=== PATIENT | female | born 2000 | race Two or more races ===

== ENCOUNTER 2025-07-19 18:37 | Emergency (ER) | payer BC ==
[~2025-07-19] VITALS: Ht 154.9 cm; Wt 68.9 kg
[2025-07-19] MEDS ORDERED: ONDANSETRON HCL/PF 4 MG/2 ML VIAL ONE ×2 (18:49→19:43)
[2025-07-19] MEDS: ONDANSETRON HCL/PF 4 MG/2 ML VIAL IVP ONE (19:03)
[2025-07-19] MEDS ORDERED: MAG HYDROX/AL HYDROX/SIMETH 30 ML UDC ONE ×2 (19:04→19:41)
[2025-07-19] MEDS ORDERED: FAMOTIDINE/PF INJ 20 MG/2 ML VIAL IV ONE (19:05)
[2025-07-19 19:07] LABS: PLATELET COUNT (AUTO) 328 K/uL (150-450); RED BLOOD CELL COUNT(AUTO) 4.71 MIL/uL (4.0-5.2); RED CELL DISTRIBUTION WIDTH 12.4 % (11.5-15.0); WHITE BLOOD COUNT (AUTO) 8.7 K/uL (4.3-11.0)
[2025-07-19] MEDS: FAMOTIDINE/PF INJ 20 MG/2 ML VIAL IV ONE (19:10)
[2025-07-19] MEDS: IV LR 1000 ML 1,000 ML BAG IV ONE (19:15)
[2025-07-19 19:16] LABS: CALCIUM, SERUM 9.5 mg/dL (8.5-10.1); CREATININE 0.8 mg/dL (0.6-1.3); SODIUM SERUM 138.0 mmol/L (136-145); UREA NITROGEN, BLOOD 8.0 mg/dL (7-18)
[2025-07-19 19:22] LABS: ASPARTATE AMINOTRANSFERASE 14.0 U/L (15-37); TOTAL PROTEIN, SERUM 7.7 g/dL (6.4-8.2)
[2025-07-19 19:26] LABS: PREGNANCY TEST SERUM QUAN 0.0 mIU/mL (0-6)
[2025-07-19 19:36] LABS: LACTIC ACID 0.8 mmol/L (0.4-2.0)
[2025-07-19] MEDS: MAG HYDROX/AL HYDROX/SIMETH 30 ML UDC PO ONE (19:42)
[2025-07-19] MEDS: ONDANSETRON HCL/PF 4 MG/2 ML VIAL IV ONE (19:45)
[2025-07-19 19:59] LABS: APPEARANCE,URINE CLEAR (CLEAR); BLOOD, URINE Negative Ery/uL (NEGATIVE); LEUKOCYTE ESTERASE ,URINE Small (NEGATIVE); NITRITE, URINE NEGATIVE (NEGATIVE); UGLUCOSE Negative (NEGATIVE)
[2025-07-19 20:01] LABS: ADD URINE CULTURE YES
[2025-07-19 21:11] VITALS: BP 124/71; TEMP 98; O2SAT 99
[2025-07-20] MEDS ORDERED: ONDA4TAB5 PO (06:36)
== END 2025-07-19 21:11 | disposition home or self-care (01) ==
LOC: ER 18:44
DX: R10.13 Epigastric pain (principal); R11.2 Nausea with vomiting, unspecified; R19.7 Diarrhea, unspecified; R07.9 Chest pain, unspecified; R06.02 Shortness of breath; E11.9 Type 2 diabetes mellitus without complications; F41.9 Anxiety disorder, unspecified; R10.2 Pelvic and perineal pain
CPT/HCPCS: 99285; 96374; 96361; 71045; 96375; 93005; 96376; 85025; 80048; 87086; 83605; 83690; 80076; 81001; 36415; 84484; 84702; J1308; J2405 ×2; J7120 ×2

== ENCOUNTER 2025-07-20 05:45 | Emergency (ER) | payer BC ==
[~2025-07-20] VITALS: Ht 154.9 cm; Wt 68.9 kg
[2025-07-20] MEDS ORDERED: HALOPERIDOL LACTATE INJ 5 MG/ML VIAL ONE (06:33)
[2025-07-20] MEDS ORDERED: ONDA4TAB5 PO (06:36)
[2025-07-20] MEDS: HALOPERIDOL LACTATE INJ 5 MG/ML VIAL IM ONE (06:40)
[2025-07-20 06:50] VITALS: BP 120/65; TEMP 98; O2SAT 100
== END 2025-07-20 06:54 | disposition home or self-care (01) ==
LOC: ER 05:52
DX: R11.2 Nausea with vomiting, unspecified (principal); E11.9 Type 2 diabetes mellitus without complications; F12.90 Cannabis use, unspecified, uncomplicated; Z32.02 Encounter for pregnancy test, result negative
CPT/HCPCS: 99283; J1630